=== PATIENT | female | born 1970 | race African-American/Black ===

== ENCOUNTER 2017-04-06 03:29 | Emergency (ER) | payer OTHER ==
[~2017-04-06] VITALS: Ht 172.7 cm; Wt 124.0 kg
[2017-04-06] MEDS ORDERED: SODIUM CHLORIDE 0.9% 1,000 ML IV ONE (04:31)
[2017-04-06] MEDS ORDERED: ONDANSETRON HCL 4MG/2ML VIAL IV STA (04:31)
[2017-04-06] MEDS ORDERED: KETOROLAC 30MG/ML VIAL IV STA (04:31)
[2017-04-06 04:52] LABS: BASOPHILS % 1.3 % (0.0-2.0); DIFFERENTIAL COMMENT 0; HEMATOCRIT. 31.3 % (36.0-48.0); HEMOGLOBIN. 9.9 g/dL (12.0-16.0); LYMPHOCYTES % 26.8 % (20.0-50.0); MEAN CORPUSCULAR HEMOGLOBIN 24.6 pg (28.0-32.0); MEAN CORPUSCULAR HGB CONC 31.5 g/dL (31.0-37.0); MEAN PLATELET VOLUME 6.8 fl (7.4-10.4); MONOCYTES % 7.5 % (2.0-8.0); NEUTROPHILS % 63.4 % (40.0-76.0); PLATELET 296 x1000/uL (130-400); RED BLOOD CELL COUNT 4.01 mill/uL (4.2-5.4); RED CELL DISTRIBUTION WIDTH 16.9 % (11.6-14.6); WHITE BLOOD COUNT 6.4 x1000/uL (4.5-11.0)
[2017-04-06 04:54] LABS: CLARITY URINE CLOUDY (CLEAR); COLOR URINE YELLOW (YELLOW); GLUCOSE URINE NEGATIVE (NEGATIVE); KETONES URINE NEGATIVE (NEGATIVE); LEUKOCYTE ESTERASE URINE 2+ (NEGATIVE); NITRITE URINE POSITIVE (NEGATIVE); OCCULT BLOOD URINE 3+ (NEGATIVE); PH URINE 7.5 (4.5-8.0); PROTEIN URINE 1+ (NEGATIVE); SPECIFIC GRAVITY URINE 1.014 (1.005-1.030)
[2017-04-06 05:03] LABS: ALANINE AMINOTRANSFERASE 12 IU/L (13-61); ANION GAP 14; CALCIUM 8.3 mg/dL (8.5-10.1); CARBON DIOXIDE 25 mEq/L (21-32); CHLORIDE 105 mEq/L (98-107); INDEX HEMOLYSI 1 (1-3); INDEX ICTERIC 1 (1-4); INDEX LIPEMIC 1 (1-3); LIPASE 114 IU/L (73-393); UREA NITROGEN BLOOD 14 mg/dL (7-21); eGFR > 60 mL/min (>60)
[2017-04-06 05:24] LABS: WBC URINE 15-25 /hpf (0-2)
[2017-04-06 05:25] LABS: BACTERIA URINE 4+; SQUAMOUS EPITHELIAL CELL URINE FEW /lpf (RARE/1+)
[2017-04-06] MEDS ORDERED: CEFTRIAXONE 1 G PREMIX 50 ML IV ONE (05:45)
[2017-04-06 06:00] VITALS: BP 144/89
== END 2017-04-06 06:38 | disposition home or self-care (01) ==
LOC: ER 03:29
DX: R10.9 Unspecified abdominal pain (principal); I10 Essential (primary) hypertension; J44.9 Chronic obstructive pulmonary disease, unspecified
CPT/HCPCS: 36415; 74176; 80053; 81001; 81025; 83690; 85025; 96361; 96365; 96375; 99285; J0696; J1885; J2405; J7030

== ENCOUNTER 2020-04-16 22:13 | Emergency (ER) | payer MEDICAID, OTHER ==
[~2020-04-16] VITALS: Ht 172.7 cm; Wt 129.0 kg
[2020-04-16] MEDS ORDERED: KETOROLAC 60MG/2ML VIAL IM ONE (23:00)
[2020-04-16] MEDS ORDERED: HYDROCODONE/ACETAMINOPHEN 10/325MG TABLET PO ONE (23:30)
[2020-04-17 00:37] VITALS: BP 132/86
== END 2020-04-17 00:40 | disposition home or self-care (01) ==
LOC: ER 22:13
DX: M25.561 Pain in right knee (principal); M25.562 Pain in left knee; I10 Essential (primary) hypertension; J45.909 Unspecified asthma, uncomplicated; Z98.890 Other specified postprocedural states
CPT/HCPCS: 73562; 96372; 99283; J1885

== ENCOUNTER 2022-06-12 15:06 | Emergency (ER) | payer MEDICAID ==
[~2022-06-12] VITALS: Ht 167.6 cm; Wt 120.0 kg
[2022-06-12 15:24] VITALS: BP 149/81
== END 2022-06-12 20:46 | disposition left against medical advice (07) ==
LOC: ER 15:06
DX: Z53.21 Procedure and treatment not carried out due to patient leaving prior to being seen by health care provider (principal)